=== PATIENT | male | born 1990 | race Hispanic/Latino ===

== ENCOUNTER 2021-06-27 12:18 | Inpatient (IN) | payer OTHER ==
[~2021-06-27] VITALS: Ht 172.7 cm; Wt 78.5 kg
[2021-06-27 14:18] LABS: HEMATOCRIT 44.9 % (42.0-52.0); MEAN CORPUSCULAR HEMOGLOBIN 30.3 pg (27.0-33.0); MEAN CORPUSCULAR HGB CONC 33.4 g/dl (32.0-36.5); MEAN CORPUSCULAR VOLUME 90.7 fl (80.0-96.0); PLATELET COUNT, AUTOMATED 313 10^3/uL (150-450); RED BLOOD COUNT 4.95 10^6/uL (4.30-6.10); WHITE BLOOD COUNT 4.5 10^3/uL (4.0-10.0)
[2021-06-27 14:44] LABS: AMPHETAMINES LEVEL URINE NEGATIVE (NEGATIVE); BARBITURATES URINE NEGATIVE (NEGATIVE); BENZODIAZEPINES URINE NEGATIVE (NEGATIVE); CANNABINOIDS URINE NEGATIVE (NEGATIVE); COCAINE METABOLITE URINE NEGATIVE (NEGATIVE); METHADONE URINE NEGATIVE (NEGATIVE); OPIATES URINE NEGATIVE (NEGATIVE); PHENCYCLIDINE URINE NEGATIVE (NEGATIVE)
[2021-06-27 14:48] LABS: ACETAMINOPHEN LEVEL < 2.0 UG/ML (10.0-30.0); ALT/SGPT 23 U/L (12-78); BILIRUBIN,DIRECT < 0.1 MG/DL (0.0-0.2); BILIRUBIN,TOTAL 0.2 MG/DL (0.2-1.0); BLOOD UREA NITROGEN 8 MG/DL (7-18); CALCIUM LEVEL 8.4 MG/DL (8.5-10.1); CARBON DIOXIDE LEVEL 31 MEQ/L (21-32); CHLORIDE LEVEL 110 MEQ/L (98-107); CREATININE FOR GFR 0.75 MG/DL (0.70-1.30); ETHYL ALCOHOL (ETHANOL) 0.321 % (0.000-0.010); GLOMERULAR FILTRATION RATE > 60.0 (>60); GLUCOSE, FASTING 106 MG/DL (70-100); POTASSIUM SERUM 4.4 MEQ/L (3.5-5.1); SALICYLATE LEVEL < 1.7 MG/DL (5.0-30.0); SODIUM LEVEL 146 MEQ/L (136-145); THYROID STIMULATING HORMONE 0.903 uIU/ML (0.358-3.740); TOTAL PROTEIN 7.2 GM/DL (6.4-8.2)
[2021-06-27] MEDS ORDERED: LORA-674 PO (17:24)
[2021-06-27] MEDS ORDERED: EMTR1TAB3 PO (17:24)
[2021-06-27] MEDS ORDERED: TRAZ-252 PO (17:24)
[2021-06-27] MEDS ORDERED: HOME MED LIST COMPLETE! XX SCH (17:25)
[2021-06-27] MEDS: THIAMINE 100 MG TAB PO SCH (21:05)
[2021-06-27] MEDS: LORazepam 2 MG TAB PO PRN (21:46)
[2021-06-28] MEDS: LORazepam 2 MG TAB PO PRN ×2 (00:05→19:23)
[2021-06-28 04:13] LABS: RSV AMPLIFICATION NEGATIVE (NEGATIVE)
[2021-06-28] MEDS: THIAMINE 100 MG TAB PO SCH ×2 (09:11→19:24)
[2021-06-28] MEDS: MULTIVITAMINS/MINERALS THERAP 1 TAB PO SCH (09:11)
[2021-06-28] MEDS: FOLIC ACID 1 MG TAB PO SCH (09:11)
[2021-06-28] MEDS: TRUVADA 200MG/300MG TABLET PO SCH (12:41)
[2021-06-28] MEDS: LORATADINE 10 MG TAB PO SCH (19:23)
[2021-06-28] MEDS: traZODone 50 MG TAB PO PRN (20:44)
[2021-06-29] MEDS: THIAMINE 100 MG TAB PO SCH ×2 (09:59→22:19)
[2021-06-29] MEDS: TRUVADA 200MG/300MG TABLET PO SCH (09:59)
[2021-06-29] MEDS: FOLIC ACID 1 MG TAB PO SCH (09:59)
[2021-06-29] MEDS: MULTIVITAMINS/MINERALS THERAP 1 TAB PO SCH (09:59)
[2021-06-29] MEDS: LORATADINE 10 MG TAB PO SCH (22:19)
[2021-06-29] MEDS: traZODone 50 MG TAB PO PRN (22:20)
[2021-06-30] MEDS: FOLIC ACID 1 MG TAB PO SCH (08:48)
[2021-06-30] MEDS: THIAMINE 100 MG TAB PO SCH ×2 (08:49→21:39)
[2021-06-30] MEDS: MULTIVITAMINS/MINERALS THERAP 1 TAB PO SCH (08:49)
[2021-06-30] MEDS: TRUVADA 200MG/300MG TABLET PO SCH (09:00)
[2021-06-30] MEDS ORDERED: MAALOX 30 ML SUSP *UDC PO PRN (12:15)
[2021-06-30] MEDS ORDERED: MOM 30ML SUSPENSION UDC PO PRN (12:15)
[2021-06-30] MEDS: LORazepam 2 MG TAB PO PRN ×2 (13:22→17:12)
[2021-06-30 16:00] VITALS: BP 116/66
[2021-06-30 16:40] VITALS: BP 116/66
[2021-06-30] MEDS: IBUPROFEN 400MG TAB PO PRN (17:12)
[2021-06-30 18:54] VITALS: BP 117/65
[2021-06-30] MEDS: LORATADINE 10 MG TAB PO SCH (21:39)
[2021-06-30] MEDS: traZODone 50 MG TAB PO PRN (21:40)
[2021-07-01 06:00] VITALS: BP 113/58
[2021-07-01 06:09] VITALS: BP 113/58
[2021-07-01] MEDS: THIAMINE 100 MG TAB PO SCH ×2 (08:38→20:13)
[2021-07-01] MEDS: FOLIC ACID 1 MG TAB PO SCH (08:38)
[2021-07-01] MEDS: MULTIVITAMINS/MINERALS THERAP 1 TAB PO SCH (08:38)
[2021-07-01] MEDS: TRUVADA 200MG/300MG TABLET PO SCH (11:28)
[2021-07-01 14:49] VITALS: BP 118/63
[2021-07-01 17:16] VITALS: BP 118/63
[2021-07-01] MEDS: LORATADINE 10 MG TAB PO SCH (20:13)
[2021-07-01] MEDS: PRAZOSIN 1 MG CAP PO SCH (20:14)
[2021-07-01] MEDS: traZODone 50 MG TAB PO PRN (20:14)
[2021-07-01] MEDS ORDERED: ESCITALOPRAM OXALATE 10 MG TAB (LEXAPRO) PO SCH (21:00)
[2021-07-02 06:00] VITALS: BP 114/60
[2021-07-02 06:23] VITALS: BP 114/60
[2021-07-02] MEDS: THIAMINE 100 MG TAB PO SCH ×2 (08:11→21:11)
[2021-07-02] MEDS: TRUVADA 200MG/300MG TABLET PO SCH (08:11)
[2021-07-02] MEDS: MULTIVITAMINS/MINERALS THERAP 1 TAB PO SCH (08:11)
[2021-07-02] MEDS: FOLIC ACID 1 MG TAB PO SCH (08:11)
[2021-07-02] MEDS: hydrOXYzine 50 MG TAB PO PRN (10:10)
[2021-07-02] MEDS: IBUPROFEN 400MG TAB PO PRN (10:11)
[2021-07-02 17:33] VITALS: BP 114/56
[2021-07-02] MEDS ORDERED: hydrOXYzine 50 MG TAB PO SCH (21:00)
[2021-07-02] MEDS: LORATADINE 10 MG TAB PO SCH (21:11)
[2021-07-02] MEDS: PRAZOSIN 1 MG CAP PO SCH (21:11)
[2021-07-02 22:00] VITALS: BP 128/85
[2021-07-03] MEDS: IBUPROFEN 400MG TAB PO PRN ×2 (01:10→22:04)
[2021-07-03] MEDS ORDERED: traZODone 100 MG TAB PO ONE (01:20)
[2021-07-03 06:00] VITALS: BP 98/54
[2021-07-03 06:47] VITALS: BP 110/56
[2021-07-03] MEDS: TRUVADA 200MG/300MG TABLET PO SCH (08:26)
[2021-07-03] MEDS: FOLIC ACID 1 MG TAB PO SCH (08:27)
[2021-07-03] MEDS: MULTIVITAMINS/MINERALS THERAP 1 TAB PO SCH (08:27)
[2021-07-03] MEDS: THIAMINE 100 MG TAB PO SCH (08:27)
[2021-07-03] MEDS ORDERED: ESCITALOPRAM OXALATE 10 MG TAB (LEXAPRO) PO SCH (09:00)
[2021-07-03 18:00] VITALS: BP 122/59
[2021-07-03] MEDS ORDERED: SERTRALINE HCL 25 MG TABLET PO SCH (21:00)
[2021-07-03] MEDS: traZODone 50 MG TAB PO SCH (22:00)
[2021-07-03] MEDS: hydrOXYzine 50 MG TAB PO PRN (22:02)
[2021-07-03] MEDS: PRAZOSIN 1 MG CAP PO SCH (22:02)
[2021-07-03] MEDS: LORATADINE 10 MG TAB PO SCH (22:03)
[2021-07-04 06:00] VITALS: BP 106/53
[2021-07-04] MEDS: TRUVADA 200MG/300MG TABLET PO SCH (09:49)
[2021-07-04 18:00] VITALS: BP 122/73
[2021-07-04] MEDS: PRAZOSIN 1 MG CAP PO SCH (21:38)
[2021-07-04] MEDS: SERTRALINE HCL 50 MG TAB PO SCH (21:38)
[2021-07-04] MEDS: hydrOXYzine 50 MG TAB PO PRN (21:38)
[2021-07-04] MEDS: LORATADINE 10 MG TAB PO SCH (21:38)
[2021-07-04] MEDS: traZODone 50 MG TAB PO SCH (21:39)
[2021-07-05 06:57] VITALS: BP 109/55
[2021-07-05] MEDS: TRUVADA 200MG/300MG TABLET PO SCH (08:52)
[2021-07-05 16:05] VITALS: BP 120/61
[2021-07-05] MEDS: traZODone 50 MG TAB PO SCH (20:55)
[2021-07-05] MEDS: PRAZOSIN 1 MG CAP PO SCH (20:55)
[2021-07-05] MEDS: hydrOXYzine 50 MG TAB PO PRN (20:55)
[2021-07-05] MEDS: SERTRALINE HCL 50 MG TAB PO SCH (20:55)
[2021-07-05] MEDS: LORATADINE 10 MG TAB PO SCH (20:55)
[2021-07-06 06:10] VITALS: BP 120/63
[2021-07-06] MEDS: IBUPROFEN 400MG TAB PO PRN (09:12)
[2021-07-06] MEDS: TRUVADA 200MG/300MG TABLET PO SCH (09:12)
[2021-07-06 16:55] VITALS: BP 120/62
[2021-07-06] MEDS: SERTRALINE HCL 50 MG TAB PO SCH (21:14)
[2021-07-06] MEDS: hydrOXYzine 50 MG TAB PO PRN (21:14)
[2021-07-06] MEDS: LORATADINE 10 MG TAB PO SCH (21:14)
[2021-07-06] MEDS: traZODone 50 MG TAB PO SCH (21:14)
[2021-07-06 21:17] VITALS: BP 126/65
[2021-07-06] MEDS: PRAZOSIN 1 MG CAP PO SCH (21:17)
[2021-07-07 06:22] VITALS: BP 111/54
[2021-07-07] MEDS: TRUVADA 200MG/300MG TABLET PO SCH (08:36)
[2021-07-07] MEDS: IBUPROFEN 400MG TAB PO PRN (08:37)
[2021-07-07] MEDS: hydrOXYzine 50 MG TAB PO PRN (08:50)
[2021-07-07] MEDS ORDERED: MINI1CAP PO (10:05)
[2021-07-07] MEDS ORDERED: HYDR50TA70 PO (10:05)
[2021-07-07] MEDS ORDERED: SERT50TA29 PO (10:05)
[2021-07-07] MEDS ORDERED: TRAZ1TAB14 PO (10:05)
== END 2021-07-07 12:59 | disposition home or self-care (01) | DRG 885 ==
LOC: M ED 12:18 → EDBD 12:18 → M ED INP 06-30 12:15 → M PSY 06-30 16:30
PROVIDERS: ADMIT Student in an Organized Health Care Education/Training Program; ATTEND Psychiatry & Neurology Psychiatry
DX: F32.0 Major depressive disorder, single episode, mild (principal); R45.851 Suicidal ideations; F10.10 Alcohol abuse, uncomplicated; F17.290 Nicotine dependence, other tobacco product, uncomplicated; Z63.4 Disappearance and death of family member

== ENCOUNTER 2021-08-05 11:45 | Inpatient (IN) | payer OTHER ==
[~2021-08-05] VITALS: Ht 172.7 cm; Wt 79.3 kg
[~2021-08-05 11:45] MED LIST: EMTR1TAB3 PO; HYDR50TA70 PO; LORA-674 PO; MINI1CAP PO; SERT50TA29 PO; TRAZ-252 PO; TRAZ1TAB14 PO
[2021-08-05] MEDS ORDERED: OXAZEPAM 15MG CAP PO ONE (12:05)
[2021-08-05] MEDS ORDERED: PRAZ1CAP PO (12:09)
[2021-08-05 13:20] LABS: HEMATOCRIT 41.3 % (42.0-52.0); HEMOGLOBIN 14.3 g/dl (13.5-17.5); MEAN CORPUSCULAR HEMOGLOBIN 30.4 pg (27.0-33.0); MEAN CORPUSCULAR HGB CONC 34.6 g/dl (32.0-36.5); MEAN CORPUSCULAR VOLUME 87.7 fl (80.0-96.0); PLATELET COUNT, AUTOMATED 263 10^3/uL (150-450); RED BLOOD COUNT 4.71 10^6/uL (4.30-6.10); WHITE BLOOD COUNT 12.4 10^3/uL (4.0-10.0)
[2021-08-05 13:43] LABS: AMPHETAMINES LEVEL URINE NEGATIVE (NEGATIVE); BARBITURATES URINE NEGATIVE (NEGATIVE); BENZODIAZEPINES URINE NEGATIVE (NEGATIVE); CANNABINOIDS URINE NEGATIVE (NEGATIVE); COCAINE METABOLITE URINE NEGATIVE (NEGATIVE); METHADONE URINE NEGATIVE (NEGATIVE); OPIATES URINE NEGATIVE (NEGATIVE); PHENCYCLIDINE URINE NEGATIVE (NEGATIVE)
[2021-08-05 13:52] LABS: ACETAMINOPHEN LEVEL < 2.0 UG/ML (10.0-30.0); ALT/SGPT 35 U/L (12-78); BILIRUBIN,DIRECT 0.1 MG/DL (0.0-0.2); BILIRUBIN,TOTAL 0.6 MG/DL (0.2-1.0); BLOOD UREA NITROGEN 6 MG/DL (7-18); CALCIUM LEVEL 9.5 MG/DL (8.5-10.1); CARBON DIOXIDE LEVEL 23 MEQ/L (21-32); CHLORIDE LEVEL 106 MEQ/L (98-107); CREATININE FOR GFR 0.64 MG/DL (0.70-1.30); ETHYL ALCOHOL (ETHANOL) 0.195 % (0.000-0.010); GLOMERULAR FILTRATION RATE > 60.0 (>60); GLUCOSE, FASTING 98 MG/DL (70-100); POTASSIUM SERUM 4.1 MEQ/L (3.5-5.1); SALICYLATE LEVEL < 1.7 MG/DL (5.0-30.0); SODIUM LEVEL 140 MEQ/L (136-145); TOTAL PROTEIN 7.6 GM/DL (6.4-8.2)
[2021-08-05 13:53] LABS: RSV AMPLIFICATION NEGATIVE (NEGATIVE)
[2021-08-05] MEDS ORDERED: MOM 30ML SUSPENSION UDC PO PRN (17:00)
[2021-08-05] MEDS ORDERED: MAALOX 30 ML SUSP *UDC PO PRN (17:00)
[2021-08-05] MEDS ORDERED: SERT50TA29 PO (17:38)
[2021-08-05] MEDS ORDERED: TRAZ1TAB14 PO (17:38)
[2021-08-05] MEDS ORDERED: HYDR50TA70 PO (17:38)
[2021-08-05] MEDS ORDERED: EMTR1TAB16 PO (17:38)
[2021-08-05] MEDS ORDERED: HOME MED LIST COMPLETE! XX SCH (17:40)
[2021-08-05 17:43] VITALS: BP 124/76
[2021-08-05] MEDS: LORazepam 2 MG TAB PO PRN ×2 (18:05→22:37)
[2021-08-05 18:19] VITALS: BP 124/76
[2021-08-05 20:15] VITALS: BP 130/83
[2021-08-05] MEDS ORDERED: ONDANSETRON 4MG ORAL DISINTEGRATING TAB PO PRN (21:50)
[2021-08-05] MEDS: THIAMINE 100 MG TAB PO SCH (22:05)
[2021-08-05] MEDS: PRAZOSIN 1 MG CAP PO SCH (22:05)
[2021-08-05 22:15] VITALS: BP 140/96
[2021-08-05] MEDS: ACETAMINOPHEN TAB 650MG DOSE (2X325MG) PO PRN (22:39)
[2021-08-06] VITALS (8 sets, daily range): BP systolic 125–140; BP diastolic 75–89
[2021-08-06] MEDS ORDERED: LORazepam 1 MG TAB PO ONE (07:00)
[2021-08-06] MEDS: SERTRALINE HCL 50 MG TAB PO SCH (09:33)
[2021-08-06] MEDS: THIAMINE 100 MG TAB PO SCH ×2 (09:34→20:27)
[2021-08-06] MEDS: FOLIC ACID 1 MG TAB PO SCH (09:34)
[2021-08-06] MEDS: MULTIVITAMINS/MINERALS THERAP 1 TAB PO SCH (09:34)
[2021-08-06] MEDS ORDERED: LORazepam 1 MG TAB PO STA (10:51)
[2021-08-06] MEDS: traZODone 50 MG TAB PO PRN (20:27)
[2021-08-06] MEDS: PRAZOSIN 1 MG CAP PO SCH (20:27)
[2021-08-06] MEDS: ACETAMINOPHEN TAB 650MG DOSE (2X325MG) PO PRN (20:28)
[2021-08-07 06:00] VITALS: BP 147/75
[2021-08-07 06:17] VITALS: BP 147/75
[2021-08-07] MEDS: LORazepam 2 MG TAB PO PRN (06:19)
[2021-08-07] MEDS: MULTIVITAMINS/MINERALS THERAP 1 TAB PO SCH (10:13)
[2021-08-07] MEDS: FOLIC ACID 1 MG TAB PO SCH (10:13)
[2021-08-07] MEDS: THIAMINE 100 MG TAB PO SCH ×2 (10:13→20:35)
[2021-08-07] MEDS: SERTRALINE HCL 50 MG TAB PO SCH (10:13)
[2021-08-07 16:58] VITALS: BP 128/77
[2021-08-07 20:30] VITALS: BP 128/77
[2021-08-07] MEDS: traZODone 50 MG TAB PO PRN (20:35)
[2021-08-07] MEDS: PRAZOSIN 1 MG CAP PO SCH (20:36)
[2021-08-08 06:30] VITALS: BP 107/72
[2021-08-08 06:33] VITALS: BP 107/72
[2021-08-08] MEDS: MULTIVITAMINS/MINERALS THERAP 1 TAB PO SCH (09:06)
[2021-08-08] MEDS: THIAMINE 100 MG TAB PO SCH (09:07)
[2021-08-08] MEDS: FOLIC ACID 1 MG TAB PO SCH (09:07)
[2021-08-08] MEDS: ACETAMINOPHEN TAB 650MG DOSE (2X325MG) PO PRN (09:07)
[2021-08-08] MEDS: SERTRALINE HCL 50 MG TAB PO SCH (09:07)
[2021-08-08] MEDS: hydrOXYzine 50 MG TAB PO SCH ×2 (11:34→20:42)
[2021-08-08] MEDS: TRUVADA 200MG/300MG TABLET PO SCH (11:34)
[2021-08-08 14:30] VITALS: BP 122/62
[2021-08-08 18:26] VITALS: BP 124/62
[2021-08-08] MEDS: traZODone 50 MG TAB PO PRN (20:43)
[2021-08-08] MEDS: PRAZOSIN 1 MG CAP PO SCH (20:43)
[2021-08-09 06:00] VITALS: BP 119/67
[2021-08-09] MEDS: hydrOXYzine 50 MG TAB PO SCH ×2 (08:34→21:52)
[2021-08-09] MEDS: TRUVADA 200MG/300MG TABLET PO SCH (08:34)
[2021-08-09 18:00] VITALS: BP 133/60
[2021-08-09] MEDS: SERTRALINE HCL 50 MG TAB PO SCH (21:52)
[2021-08-09] MEDS: traZODone 50 MG TAB PO PRN (21:52)
[2021-08-09] MEDS: busPIRone 5 MG TAB PO SCH (21:52)
[2021-08-09] MEDS: PRAZOSIN 1 MG CAP PO SCH (21:53)
[2021-08-10 07:05] VITALS: BP 136/65
[2021-08-10] MEDS: TRUVADA 200MG/300MG TABLET PO SCH (08:00)
[2021-08-10] MEDS: busPIRone 5 MG TAB PO SCH ×2 (08:00→21:15)
[2021-08-10] MEDS: hydrOXYzine 50 MG TAB PO SCH ×2 (08:00→21:15)
[2021-08-10] MEDS: SERTRALINE HCL 50 MG TAB PO SCH (21:15)
[2021-08-10] MEDS: PRAZOSIN 1 MG CAP PO SCH (21:16)
[2021-08-10] MEDS: traZODone 50 MG TAB PO PRN (21:16)
[2021-08-11 06:26] VITALS: BP 121/65
[2021-08-11] MEDS: TRUVADA 200MG/300MG TABLET PO SCH (08:19)
[2021-08-11] MEDS: busPIRone 5 MG TAB PO SCH ×2 (08:19→21:19)
[2021-08-11] MEDS: hydrOXYzine 50 MG TAB PO SCH ×2 (08:19→21:19)
[2021-08-11 16:27] VITALS: BP 135/74
[2021-08-11] MEDS: SERTRALINE HCL 50 MG TAB PO SCH (21:19)
[2021-08-11] MEDS: LORATADINE 10 MG TAB PO SCH (21:19)
[2021-08-11] MEDS: PRAZOSIN 1 MG CAP PO SCH (21:19)
[2021-08-11] MEDS: traZODone 50 MG TAB PO PRN (21:21)
[2021-08-12 06:30] VITALS: BP 111/63
[2021-08-12] MEDS: hydrOXYzine 50 MG TAB PO SCH ×2 (08:33→21:29)
[2021-08-12] MEDS: TRUVADA 200MG/300MG TABLET PO SCH (08:33)
[2021-08-12] MEDS: busPIRone 5 MG TAB PO SCH ×2 (08:33→21:30)
[2021-08-12 16:34] VITALS: BP 128/73
[2021-08-12] MEDS: LORATADINE 10 MG TAB PO SCH (21:29)
[2021-08-12] MEDS: SERTRALINE HCL 50 MG TAB PO SCH (21:29)
[2021-08-12] MEDS: PRAZOSIN 1 MG CAP PO SCH (21:30)
[2021-08-12] MEDS: traZODone 50 MG TAB PO PRN (21:30)
[2021-08-13 06:54] VITALS: BP 108/59
[2021-08-13] MEDS: hydrOXYzine 50 MG TAB PO SCH ×2 (08:33→21:14)
[2021-08-13] MEDS: busPIRone 5 MG TAB PO SCH ×2 (08:33→21:14)
[2021-08-13] MEDS: TRUVADA 200MG/300MG TABLET PO SCH (08:33)
[2021-08-13 16:21] VITALS: BP 121/59
[2021-08-13] MEDS: SERTRALINE HCL 50 MG TAB PO SCH (21:14)
[2021-08-13] MEDS: PRAZOSIN 1 MG CAP PO SCH (21:14)
[2021-08-13] MEDS: traZODone 50 MG TAB PO PRN (21:14)
[2021-08-13] MEDS: LORATADINE 10 MG TAB PO SCH (21:14)
[2021-08-14 06:44] VITALS: BP 114/60
[2021-08-14] MEDS: hydrOXYzine 50 MG TAB PO SCH ×2 (08:38→21:01)
[2021-08-14] MEDS: busPIRone 5 MG TAB PO SCH ×2 (08:38→21:01)
[2021-08-14] MEDS: TRUVADA 200MG/300MG TABLET PO SCH (08:38)
[2021-08-14 17:15] VITALS: BP 143/76
[2021-08-14] MEDS: SERTRALINE HCL 25 MG TABLET PO SCH (21:01)
[2021-08-14] MEDS: LORATADINE 10 MG TAB PO SCH (21:02)
[2021-08-14] MEDS: PRAZOSIN 1 MG CAP PO SCH (21:02)
[2021-08-14] MEDS: traZODone 50 MG TAB PO PRN (22:18)
[2021-08-15 06:24] VITALS: BP 102/62
[2021-08-15] MEDS: busPIRone 5 MG TAB PO SCH (08:22)
[2021-08-15] MEDS: TRUVADA 200MG/300MG TABLET PO SCH (08:22)
[2021-08-15] MEDS: hydrOXYzine 50 MG TAB PO SCH ×2 (08:23→21:01)
[2021-08-15 17:02] VITALS: BP 122/72
[2021-08-15] MEDS: HYDROCORTISONE 1% CREAM 30 GM TOP SCH (17:41)
[2021-08-15] MEDS: LORATADINE 10 MG TAB PO SCH (21:00)
[2021-08-15] MEDS: SERTRALINE HCL 25 MG TABLET PO SCH (21:01)
[2021-08-15] MEDS: PRAZOSIN 1 MG CAP PO SCH (21:01)
[2021-08-15] MEDS: busPIRone 10 MG TAB PO SCH (21:01)
[2021-08-15] MEDS: QUEtiapine FUMARATE 50MG TAB PO SCH (21:01)
[2021-08-16 06:25] VITALS: BP 104/54
[2021-08-16] MEDS: busPIRone 10 MG TAB PO SCH ×2 (08:49→21:26)
[2021-08-16] MEDS: hydrOXYzine 50 MG TAB PO SCH ×2 (08:49→21:26)
[2021-08-16] MEDS: HYDROCORTISONE 1% CREAM 30 GM TOP SCH (08:49)
[2021-08-16] MEDS: TRUVADA 200MG/300MG TABLET PO SCH (08:49)
[2021-08-16] MEDS: CEPACOL LOZENGE PO PRN ×2 (14:56→21:28)
[2021-08-16 16:00] VITALS: BP 127/70
[2021-08-16] MEDS: SERTRALINE HCL 25 MG TABLET PO SCH (21:26)
[2021-08-16] MEDS: PRAZOSIN 1 MG CAP PO SCH (21:26)
[2021-08-16] MEDS: LORATADINE 10 MG TAB PO SCH (21:26)
[2021-08-16] MEDS: QUEtiapine FUMARATE 50MG TAB PO SCH (21:27)
[2021-08-17 06:39] VITALS: BP 128/71
[2021-08-17] MEDS: hydrOXYzine 50 MG TAB PO SCH ×2 (08:47→20:31)
[2021-08-17] MEDS: HYDROCORTISONE 1% CREAM 30 GM TOP SCH (08:48)
[2021-08-17] MEDS: busPIRone 10 MG TAB PO SCH ×2 (08:48→20:32)
[2021-08-17] MEDS: TRUVADA 200MG/300MG TABLET PO SCH (08:48)
[2021-08-17 16:25] VITALS: BP 142/76
[2021-08-17] MEDS: SERTRALINE HCL 25 MG TABLET PO SCH (20:31)
[2021-08-17] MEDS: PRAZOSIN 1 MG CAP PO SCH (20:31)
[2021-08-17] MEDS: LORATADINE 10 MG TAB PO SCH (20:31)
[2021-08-17] MEDS: QUEtiapine FUMARATE 50MG TAB PO SCH (20:32)
[2021-08-17] MEDS: CEPACOL LOZENGE PO PRN (20:32)
[2021-08-18 07:10] VITALS: BP 135/67
[2021-08-18] MEDS: busPIRone 10 MG TAB PO SCH ×2 (09:16→21:37)
[2021-08-18] MEDS: hydrOXYzine 50 MG TAB PO SCH ×2 (09:16→21:37)
[2021-08-18] MEDS: HYDROCORTISONE 1% CREAM 30 GM TOP SCH (09:17)
[2021-08-18] MEDS: TRUVADA 200MG/300MG TABLET PO SCH (09:17)
[2021-08-18 18:00] VITALS: BP 130/72
[2021-08-18] MEDS ORDERED: QUEtiapine FUMARATE 25 MG TAB PO SCH (21:00)
[2021-08-18] MEDS: PRAZOSIN 1 MG CAP PO SCH (21:37)
[2021-08-18] MEDS: LORATADINE 10 MG TAB PO SCH (21:38)
[2021-08-18] MEDS: SERTRALINE HCL 25 MG TABLET PO SCH (21:38)
[2021-08-18] MEDS: CEPACOL LOZENGE PO PRN (23:02)
[2021-08-19 06:52] VITALS: BP 139/74
[2021-08-19] MEDS: TRUVADA 200MG/300MG TABLET PO SCH (08:44)
[2021-08-19] MEDS: hydrOXYzine 50 MG TAB PO SCH ×2 (08:44→21:48)
[2021-08-19] MEDS: busPIRone 10 MG TAB PO SCH ×2 (08:44→21:48)
[2021-08-19] MEDS: HYDROCORTISONE 1% CREAM 30 GM TOP SCH (08:45)
[2021-08-19 19:06] VITALS: BP 127/67
[2021-08-19] MEDS ORDERED: QUEtiapine FUMARATE 100 MG TAB PO SCH (21:00)
[2021-08-19] MEDS: LORATADINE 10 MG TAB PO SCH (21:48)
[2021-08-19] MEDS: CEPACOL LOZENGE PO PRN (21:48)
[2021-08-19 21:50] VITALS: BP 120/58
[2021-08-19] MEDS: SERTRALINE HCL 25 MG TABLET PO SCH (21:50)
[2021-08-19] MEDS: PRAZOSIN 1 MG CAP PO SCH (21:50)
[2021-08-20 06:00] VITALS: BP 107/62
[2021-08-20] MEDS: HYDROCORTISONE 1% CREAM 30 GM TOP SCH (09:00)
[2021-08-20] MEDS: hydrOXYzine 50 MG TAB PO SCH (09:56)
[2021-08-20] MEDS: busPIRone 10 MG TAB PO SCH (09:56)
[2021-08-20] MEDS: TRUVADA 200MG/300MG TABLET PO SCH (09:56)
[2021-08-20] MEDS: CEPACOL LOZENGE PO PRN (10:25)
[2021-08-20] MEDS ORDERED: BUSP10TA PO (10:26)
[2021-08-20] MEDS ORDERED: SERT25TA21 PO (10:26)
[2021-08-20] MEDS ORDERED: QUET100T2 PO (10:26)
== END 2021-08-20 11:37 | DRG 885 ==
LOC: M ED 11:45 → M ED INP 16:58 → M PSY 18:14
PROVIDERS: ADMIT Psychiatry & Neurology Psychiatry; ATTEND Psychiatry & Neurology Psychiatry
DX: F32.0 Major depressive disorder, single episode, mild (principal); R45.851 Suicidal ideations; F10.130 Alcohol abuse with withdrawal, uncomplicated; F17.290 Nicotine dependence, other tobacco product, uncomplicated; R07.89 Other chest pain; Z20.822 Contact with and (suspected) exposure to COVID-19; Z79.899 Other long term (current) drug therapy; Z63.0 Problems in relationship with spouse or partner

== ENCOUNTER 2022-10-23 09:14 | Emergency (ER) | payer OTHER ==
[~2022-10-23] VITALS: Ht 170.2 cm; Wt 73.1 kg
[~2022-10-23 09:14] MED LIST changes: +BUSP10TA PO; +EMTR1TAB16 PO; +FOLIC ACID 1MG TAB PO SCH; +LORA-1041 PO; -LORA-674 PO; +MULTIVITAMINS/MINERALS THERAP 1 TAB PO SCH; +PRAZ1CAP PO; +QUET100T2 PO; +SERT25TA21 PO
[2022-10-23] MEDS ORDERED: ISOVUE-370 76% 100ML VIAL As Ordered ONE (09:54)
[2022-10-23] MEDS ORDERED: PRAZ2CAP PO (10:02)
[2022-10-23] MEDS ORDERED: EMTR1TAB3 PO (10:02)
[2022-10-23] MEDS ORDERED: CYCL5TAB PO (10:02)
[2022-10-23] MEDS ORDERED: NAPR-885 PO (10:02)
[2022-10-23] MEDS ORDERED: LIDO1PAD TOP (10:02)
[2022-10-23] MEDS ORDERED: ESZO1TAB8 (10:02)
[2022-10-23] MEDS ORDERED: NS 1,000 ML IV ONE ×3 (10:20→12:55)
[2022-10-23 10:25] LABS: AMYLASE 194 U/L (30-118)
[2022-10-23 10:33] LABS: ALBUMIN 4.3 G/DL (3.2-5.2); ALKALINE PHOSPHATASE 99 U/L (46-116); ALT/SGPT 208 U/L (7.0-40); AST/SGOT 222 U/L (<34); BILIRUBIN,DIRECT 0.1 MG/DL (<0.4); BILIRUBIN,TOTAL 0.3 MG/DL (0.3-1.2); BLOOD UREA NITROGEN 8 MG/DL (9-23); CALCIUM LEVEL 8.5 MG/DL (8.5-10.1); CARBON DIOXIDE LEVEL 16 MMOL/L (20-31); CHLORIDE LEVEL 111 MMOL/L (98-107); CREATININE FOR GFR 1.14 MG/DL (0.70-1.30); GLOMERULAR FILTRATION RATE > 60.0 (>60); GLUCOSE, FASTING 165 MG/DL (60-100); LIPASE 53 U/L (12-53); POTASSIUM SERUM 4.7 MMOL/L (3.5-5.1); SODIUM LEVEL 144 MMOL/L (136-145); TOTAL PROTEIN 7.4 G/DL (5.7-8.2)
[2022-10-23 10:38] LABS: RSV AMPLIFICATION NEGATIVE (NEGATIVE)
[2022-10-23] MEDS ORDERED: LIDOCAINE 1% MDV 20ML VIAL SC ONE (10:50)
[2022-10-23 10:51] LABS: CPK CREATINE PHOSPHOKINASE 167 U/L (46-171); ETHYL ALCOHOL (ETHANOL) 0.386 % (0.000-0.010)
[2022-10-23 10:57] LABS: BASO % 0.3 % (0.0-1.0); HEMATOCRIT 34.5 % (42.0-52.0); HEMOGLOBIN 11.6 g/dl (13.5-17.5); LYMPH # 0.9 10^3/uL (1.5-5.0); LYMPH % 7.5 % (24.0-44.0); MEAN CORPUSCULAR HEMOGLOBIN 31.4 pg (27.0-33.0); MEAN CORPUSCULAR HGB CONC 33.6 g/dl (32.0-36.5); MEAN CORPUSCULAR VOLUME 93.5 fl (80.0-96.0); MONO # 0.5 10^3/uL (0.0-0.8); MONO % 3.9 % (2.0-8.0); NEUTROPHILS # 10.2 10^3/uL (1.5-8.5); NEUTROPHILS % 87.5 % (36.0-66.0); PLATELET COUNT, AUTOMATED 231 10^3/uL (150-450); RED BLOOD COUNT 3.69 10^6/uL (4.30-6.10); WHITE BLOOD COUNT 11.6 10^3/uL (4.0-10.0)
[2022-10-23 11:07] LABS: INR 1.07; PROTHROMBIN TIME 13.6 SECONDS (12.5-14.5)
[2022-10-23 11:08] LABS: PARTIAL THROMBOPLASTIN TIME 22.6 SECONDS (24.8-34.2)
[2022-10-23 12:06] LABS: APPEARANCE, URINE CLEAR (CLEAR); BACTERIA, URINE AUTO NEGATIVE (NEGATIVE); BILIRUBIN, URINE AUTO NEGATIVE (NEGATIVE); BLOOD, URINE BLOOD 1+ (NEGATIVE); COLOR, URINE YELLOW (YELLOW); GLUCOSE, URINE (UA) AUTO NEGATIVE (NEGATIVE); KETONE, URINE AUTO NEGATIVE (NEGATIVE); LEUKOCYTE ESTERASE, URINE AUTO NEGATIVE (NEGATIVE); MUCUS, URINE SMALL (NEGATIVE); NITRITE, URINE AUTO NEGATIVE (NEGATIVE); PROTEIN, URINE AUTO NEGATIVE (NEGATIVE); RBC, URINE AUTO 0 /HPF (0-3); SQUAMOUS EPITHELIAL CELL UR AU 0 /HPF (0-6); UROBILINOGEN, URINE AUTO 0.2 mg/dL (0.0-2.0); WBC, URINE AUTO 1 /HPF (0-3)
[2022-10-23 12:33] LABS: AMPHETAMINES LEVEL URINE NEGATIVE (NEGATIVE); BARBITURATES URINE NEGATIVE (NEGATIVE); BENZODIAZEPINES URINE NEGATIVE (NEGATIVE); CANNABINOIDS URINE NEGATIVE (NEGATIVE); COCAINE METABOLITE URINE NEGATIVE (NEGATIVE); METHADONE URINE NEGATIVE (NEGATIVE); PHENCYCLIDINE URINE NEGATIVE (NEGATIVE)
[2022-10-23 12:34] LABS: OPIATES URINE NEGATIVE (NEGATIVE)
[2022-10-23 12:38] LABS: ACETAMINOPHEN LEVEL 2.4 UG/ML (10.0-20.0); SALICYLATE LEVEL < 3.0 MG/DL (<30)
[2022-10-23] MEDS ORDERED: LORazepam 2 MG TAB PO PRN (12:55)
[2022-10-23 13:13] LABS: HEPATITIS B CORE ANTIBODY IGM NEGATIVE (NEGATIVE)
[2022-10-23 13:14] LABS: HEPATITIS C VIRUS ABY INDEX 0.23 INDEX (<0.8)
[2022-10-23] MEDS ORDERED: LIDOCAINE 1% SDV 5ML VIAL DILUENT ONE (14:45)
[2022-10-23] MEDS ORDERED: cefTRIAXone 500MG VIAL IM ONE (14:45)
[2022-10-23] MEDS ORDERED: metroNIDAZOLE (FLAGYL) 500MG TABLET PO ONE (14:45)
[2022-10-23] MEDS ORDERED: AZITHROMYCIN 250MG TABLET PO ONE (14:45)
[2022-10-23] MEDS ORDERED: ACETAMINOPHEN 500 MG TAB PO ONE (17:00)
[2022-10-23 17:09] LABS: HIV 1&2 SCREEN NEGATIVE (NEGATIVE)
[2022-10-23] MEDS: THIAMINE 100 MG TAB PO SCH ×2 (17:35→21:00)
[2022-10-23] MEDS ORDERED: BICILLIN L-A 2,400,000 UNIT/4 ML SYRINGE (PENICILLIN G BENZATINE) IM ONE (18:25)
[2022-10-23 19:52] LABS: BLOOD UREA NITROGEN 5 MG/DL (9-23); CALCIUM LEVEL 7.1 MG/DL (8.5-10.1); CARBON DIOXIDE LEVEL 20 MMOL/L (20-31); CHLORIDE LEVEL 111 MMOL/L (98-107); CREATININE FOR GFR 0.59 MG/DL (0.70-1.30); GLOMERULAR FILTRATION RATE > 60.0 (>60); GLUCOSE, FASTING 90 MG/DL (60-100); POTASSIUM SERUM 3.8 MMOL/L (3.5-5.1); SODIUM LEVEL 142 MMOL/L (136-145)
[2022-10-23] MEDS ORDERED: ONDANSETRON 4MG 2ML VIAL IV ONE (20:25)
[2022-10-23] MEDS ORDERED: ALPRAZolam 0.5 MG TAB PO ONE (21:35)
[2022-10-23 22:07] VITALS: TEMP 99.4
[2022-10-24 04:30] VITALS: BP 101/71; O2SAT 100
[2022-10-29] MEDS ORDERED: LUNE1TAB8 PO (10:41)
[2022-10-29] MEDS ORDERED: CETI-24 PO (10:41)
[2022-10-29] MEDS ORDERED: ACET-897 PO (10:41)
[2022-10-29] MEDS ORDERED: LUNE2TAB23 PO (10:47)
[2022-10-29] MEDS ORDERED: FLON1SPR NARES (10:47)
== END 2022-10-24 05:20 | disposition home or self-care (01) ==
LOC: EDBD 09:14 → M ED 09:14
DX: S01.81XA Laceration without foreign body of other part of head, initial encounter (principal); S02.2XXA Fracture of nasal bones, initial encounter for closed fracture; Y04.0XXA Assault by unarmed brawl or fight, initial encounter; Y92.89 Other specified places as the place of occurrence of the external cause; Y93.89 Activity, other specified; Y99.8 Other external cause status; A53.9 Syphilis, unspecified; G47.00 Insomnia, unspecified; M25.559 Pain in unspecified hip
CPT/HCPCS: 12013; 36415; 70450; 71045; 71260; 72125; 72170; 74177; 80047; 80048; 80076; 80143; 80307; 81001; 82077; 82150; 82550; 83605; 83690; 85025; 85610; 85730; 86592; 86705; 86709; 86780; 86803; 86850; 86900; 86901; 87340; 87389; 87631; 93005; 93041; 94760; 96372; 96374; 99285; J0561; J0696; J2405; Q9967

== ENCOUNTER 2022-11-02 12:49 | Day surgery (SDC) | payer OTHER ==
[~2022-11-02] VITALS: Ht 170.2 cm; Wt 74.4 kg
[~2022-11-02 12:49] MED LIST changes: +ACET-897 PO; +CETI-24 PO; +CYCL5TAB PO; +ESZO1TAB8; +FLON1SPR NARES; -FOLIC ACID 1MG TAB PO SCH; +LIDO1PAD TOP; +LUNE1TAB8 PO; +LUNE2TAB23 PO; -MULTIVITAMINS/MINERALS THERAP 1 TAB PO SCH; +NAPR-885 PO; +PRAZ2CAP PO
[2022-11-02] MEDS ORDERED: LR 1,000 ML IV SCH ×2 (13:25→16:15)
[2022-11-02] MEDS ORDERED: LIDOCAINE W/EPINEPHRINE 1% 20ML VIAL As Ordered ONE (15:13)
[2022-11-02] MEDS ORDERED: COCAINE 4% 4ML NASAL SOLUTION BTL As Ordered ONE (15:25)
[2022-11-02] MEDS ORDERED: MIDAZOLAM INJ 2MG/2ML VIAL As Ordered ONE (15:30)
[2022-11-02] MEDS ORDERED: ONDANSETRON 4MG 2ML VIAL As Ordered ONE (15:30)
[2022-11-02] MEDS ORDERED: propofoL 200 MG/20 ML VIAL As Ordered ONE (15:30)
[2022-11-02] MEDS ORDERED: LIDOCAINE 2% 100MG/5ML SDV (FOR ANES.) As Ordered ONE (15:30)
[2022-11-02] MEDS ORDERED: fentaNYL 100 MCG/2 ML INJECTION As Ordered ONE (15:30)
[2022-11-02] MEDS ORDERED: ROCURONIUM BROMIDE 50MG/5ML VIAL As Ordered ONE (15:30)
[2022-11-02] MEDS ORDERED: SUGAMMADEX SODIUM 500 MG/5 ML VIAL (BRIDION) As Ordered ONE (15:31)
[2022-11-02] MEDS ORDERED: ACETAMINOPHEN 1000MG 100ML IV BAG As Ordered ONE (16:01)
[2022-11-02] MEDS ORDERED: ONDANSETRON 4MG 2ML VIAL IV PRN (16:15)
[2022-11-02] MEDS ORDERED: fentaNYL 100 MCG/2 ML INJECTION IV PRN (16:15)
[2022-11-02] MEDS: oxyCODONE 5MG TAB PO PRN ×2 (16:37→17:07)
[2022-11-02] MEDS: HYDROMORPHONE HCL 0.5 MG/ 0.5 ML SYRINGE IV PRN ×2 (16:59→17:07)
[2022-11-02 17:22] VITALS: BP 116/77; TEMP 97.1; O2SAT 100
== END 2022-11-02 17:39 | disposition home or self-care (01) ==
LOC: M SDC 12:49
PROVIDERS: ATTEND Otolaryngology
DX: S02.2XXA Fracture of nasal bones, initial encounter for closed fracture (principal); W01.198A Fall on same level from slipping, tripping and stumbling with subsequent striking against other object, initial encounter; Y92.89 Other specified places as the place of occurrence of the external cause; Z87.891 Personal history of nicotine dependence
CPT/HCPCS: 21320; C9143; J0131; J1100; J1170; J2250; J2405; J3010